=== PATIENT | female | born 1980 | race African-American/Black ===

== ENCOUNTER 2025-07-03 10:31 | Emergency (ER) | payer SELFPAY ==
[~2025-07-03] VITALS: Ht 172.7 cm; Wt 77.6 kg
--- NOTE | 2025-07-03 10:40 | NUR ---
PATIENT IN ROOM
--- NOTE | 2025-07-03 11:08 | ERN ---
ED Note History of Present Illness Stated Complaint: MEDICAL CLERANCE Chief Complaint: Medical Clearance Time Seen by MD: 11:05 Time Seen by Midlevel: 11:07 Dictation: PATIENT IS A 44-YEAR-OLD FEMALE COMING IN VIA EMS FROM [facility]. PER EMS, PATIENT HAD ALREADY BEEN SEEN AT [facility] THIS MORNING AND WAS SEDATED AND THEN DISCHARGED WITH MEDICAL CLEARANCE TO [facility]. [facility] EVALUATED HER ON ARRIVAL TO THEIR FACILITY SAID SHE WAS TOO DROWSY AND TO COME TO OUR FACILITY FOR FURTHER EVALUATION. PATIENT IS A SECTION [employer] BY THE [employer] FOR COOL PTSD. PATIENT DENIES SUICIDAL OR HOMICIDAL IDEATION SHE IS DROWSY BUT AROUSABLE AND ANSWERS QUESTIONS PER EMS, Allergies: Coded Allergies: No Known Drug Allergies (Unverified Allergy, Unknown, 07/03/25) Past Medical History Past Medical History: Anxiety, Depression, Other Additional Past Medical Hx: PTSD Surgical History: RN Note Reviewed/Agreed w/PFSH: Yes Review of System Dictation CONSTITUTIONAL: NEGATIVE EXCEPT FOR HPI HEAD/FACE: NEGATIVE EXCEPT FOR HPI EENT: NEGATIVE EXCEPT FOR HPI RESPIRATORY: NEGATIVE EXCEPT FOR HPI GASTROINTESTINAL/ABDOMINAL: NEGATIVE EXCEPT FOR HPI GENITOURINARY: NEGATIVE EXCEPT FOR HPI MUSCULOSKELETAL: NEGATIVE EXCEPT FOR HPI INTEGUMENTARY: NEGATIVE EXCEPT FOR HPI NEUROLOGICAL/PSYCH: NEGATIVE EXCEPT FOR HPI DROWSY/LETHARGIC HEMATOLOGIC/LYMPHATIC: NEGATIVE EXCEPT FOR HPI ALL SYSTEMS NEGATIVE, EXCEPT NOTED ABOVE. 13 POINT REVIEW OF SYSTEMS ASSESSED AND ALL NEGATIVE EXCEPT FOR ABOVE. Initial Vital Sign VS Vital Signs Date Time Temp Pulse Resp B/P (MAP) Pulse Ox O2 Delivery O2 Flow Rate FiO2 07/03/25 10:36 98.4 94 13 101/75 99 Room Air 0 07/03/25 10:40 21 Physical Exam Dictation VITAL SIGNS REVIEWED GENERAL APPEARANCE: ALERT, ORIENTED X 3, NO ACUTE DISTRESS, WELL DEVELOPED, NOURISHED. PATIENT IS DROWSY YET AROUSABLE AND WE WILL ANSWER QUESTIONS APPRO PRIATELY. SHE OFFERS NO SPECIFIC COMPLAINTS. HEAD AND FACE: NON-TRAUMATIC. EYES: PERRL, PINK CONJUNCTIVAS, EYELID NO TRAUMA, ANTERIOR CHAMBER WITH ARCUS SENILIS. EARS: PINNAS INTACT AND NO SIGNS OF TRAUMA OR ERYTHEMA EAR CANALS CLEAR AND NO DISCHARGE TM NO ERYTHEMA NOSE: NO DISCHARGE, NO BLEEDING. OROPHARYNX: MOUTH NORMAL, TONGUE PINK, PHARYNX CLEAR,NO ERYTHEMA, TONSILS NO EXUDATES, NO ABSCESSES NOTED, MUCOUS MEMBRANE MOIST NECK: SUPPLE, NON-TENDER, NO THYROMEGALY, NO MASSES, NO JVD, NO BRUITS BREAST:DEFERRED CHEST:NO TENDERNESS, NO CREPITUS, NO PARADOXICAL MOVEMENT, NO RETRACTIONS LUNGS:CLEAR, WELL-VENTILATED, SYMMETRIC, NO RALES, NO WHEEZING, NO RHONCHI, NO STRIDOR, GOOD BREATH SOUNDS BILATERALLY HEART: REGULAR RATE, REGULAR RHYTHM, NO MURMUR, NO GALLOPS VASCULAR: NO PERIPHERAL EDEMA, ABDOMEN: SOFT, POSITIVE BOWEL SOUNDS, NONDISTENDED, NO GUARDING, NONTENDER, NO REBOUND, NO MASSES NO HEPATOMEGALY, NO SPLENOMEGALY, NO ULLOA'S SIGN, NO HERNIAS. RECTAL: DEFERRED GENITAL: DEFERRED NEUROLOGICAL: NORMAL SPEECH ONCE AROUSE., MOTOR FUNCTION INTACT, SENSORY FUNCTION INTACT NO SUICIDAL IDEATION. MUSCULOSKELETAL: NECK NONTENDER, FULL RANGE OF MOTION, BACK NONTENDER, FULL RANGE OF MOTION, EXTREMITIES: NONTENDER, FULL RANGE OF MOTION SKIN: COLOR PINK, DRY, NO TURGOR, NO RASH, NO LACERATIONS, NO ABRASIONS, NO CONTUSIONS. LYMPHATIC: DEFERRED Results (Laboratory/Radiology) Laboratory/Radiology Laboratory Tests Test 07/03/25 11:17 07/03/25 11:39 White Blood Count 4.6 K/uL (4.8-10.8) L Red Blood Count 4.01 MIL/uL (4.00-5.50) Hemoglobin 10.0 g/dL (12.0-16.0) L Hematocrit 32.7 % (36-48) L Mean Corpuscular Volume 81.5 fL (79-99) Mean Corpuscular Hemoglobin 24.9 pg (27.0-33.0) L Mean Corpuscular Hemoglobin Concent 30.6 g/dL (32.0-36.0) L Red Cell Distribution Width 18.8 % (11.0-15.5) H Platelet Count 185 K/uL (130-400) Mean Platelet Volume 9.7 fL (7.5-10.5) Immature Granulocyte % (Auto) 0.2 % (0-1) Neutrophils (%) (Auto) 32.1 % (40.0-77.0) L Lymphocytes (%) (Auto) 48.5 % (21.0-51.0) Monocytes (%) (Auto) 17.5 % (3.0-13.0) H Eosinophils (%) (Auto) 1.3 % (0.0-8.0) Basophils (%) (Auto) 0.4 % (0.0-5.0) Neutrophils # (Auto) 1.5 K/uL (1.8-7.7) L Lymphocytes # (Auto) 2.3 K/uL (1.0-4.8) Monocytes # (Auto) 0.8 K/uL (0.1-1.0) Eosinophils # (Auto) 0.06 K/uL (0.00-0.70) Basophils # (Auto) 0.02 K/uL (0.00-0.20) Absolute Immature Granulocyte (auto 0.01 K/uL (0-1) Segmented Neutrophils % 36 % (40-70) L Lymphocytes % (Manual) 52 % (22-44) H Monocytes % (Manual) 9 % (2-9) Eosinophils % (Manual) 3 % (1-6) Nucleated Red Blood Cells 0.0 % (0.0-0.19) Differential Comment MANUAL DIFFERENTIAL White Cell Morphology Comment Platelet Morphology Comment ADEQUATE Red Blood Cell Morphology See comments Sodium Level 138 mmol/L (136-145) Potassium Level 3.9 mmol/L (3.5-5.1) Chloride Level 107 mmol/L (101-111) Carbon Dioxide Level 26 mmol/L (21-32) Blood Urea Nitrogen 14 mg/dL (7-18) Creatinine 0.8 mg/dL (0.5-1.0) Glomerular Filtration Rate Calc 92 mL/min (>90) Random Glucose 71 mg/dL (70-105) Total Calcium 8.4 mg/dL (8.5-10.1) L Total Creatine Kinase 185 U/L (21-232) Serum Test, Qualitative NEGATIVE (NEGATIVE) Salicylates Level < 2.8 mg/dL (2.8-20.0) L Acetaminophen Level < 1 mcg/mL (10-30) L Serum Alcohol < 3 mg/dL (0-10) Urine Color RED (YELLOW) Urine Appearance CLOUDY (CLEAR) H Urine pH 6.5 (5.0-8.0) Urine Specific [place] 1.025 (1.001-1.031) Urine Protein 100 mg/dL (NEGATIVE) H Urine Glucose (UA) NEGATIVE mg/dL (NEGATIVE) Urine Ketones NEGATIVE mg/dL (NEGATIVE) Urine Occult Blood LARGE (NEGATIVE) H Urine Nitrate NEGATIVE (NEGATIVE) Urine Bilirubin SMALL mg/dL (NEGATIVE) H Urine Urobilinogen 0.2 mg/dL (0.2-1.0) Urine Leukocyte Esterase TRACE Surendra/uL (NEGATIVE) H Urine RBC TNTC /HPF (0-1) H Urine WBC 0-1 /HPF (0-1) Urine Squamous Epithelial Cells Few /HPF (0-2) Urine Bacteria Rare /HPF (None Seen) Urine Opiates Screen NEGATIVE (NEGATIVE) Urine Barbiturates Screen NEGATIVE (NEGATIVE) Urine Phencyclidine Screen NEGATIVE (NEGATIVE) Urine Amphetamines Screen NEGATIVE (NEGATIVE) Urine Benzodiazepines Screen POSITIVE (NEGATIVE) H Urine Cocaine Screen NEGATIVE (NEGATIVE) Urine Marijuana (THC) Screen NEGATIVE (NEGATIVE) Labs Reviewed?: Yes ED Course ED Course Orders Procedure Category Date Status Time Drug Screen Urine LAB 07/03/25 Complete 11:05 Cbc With Differential LAB 07/03/25 Complete 11:05 Alcohol, Blood LAB 07/03/25 Complete 11:05 Salicylate LAB 07/03/25 Complete 11:05 Acetaminophen LAB 07/03/25 Complete 11:05 Testing, LAB 07/03/25 Complete Serum Hcg 11:05 Urinalysis Profile LAB 07/03/25 Complete 11:05 Creatine Kinase, Total LAB 07/03/25 Complete 11:05 Basic Metabolic Panel LAB 07/03/25 Complete 11:05 Manual Differential LAB 07/03/25 Complete 11:17 Vital Signs Date Time Temp Pulse Resp B/P (MAP) Pulse Ox O2 Delivery O2 Flow Rate FiO2 07/03/25 11:59 98.2 102 16 119/84 99 Room Air* 0 21 07/03/25 10:40 98.2 89 20 112/79 100 Room Air* 0 21 07/03/25 10:36 98.4 94 13 101/75 99 Room Air 0 1150/PATIENT REQUESTED FOOD AND WATER FROM RN. SHE IS NOW MORE AROUSABLE AND IS ABLE TO EAT AND DRINK SAFELY. SHE WILL BE PROVIDED LUNCH AND BE MEDICALLY CLEARED BACK TO [facility]1300/ 1300/* PATIENT ALERT AND ORIENTED X3 SPEECH IS CLEAR SHE IS NOW MEDICALLY CLEAR ED FOR [facility] AND WE WILL BE TRANSFERRED. Medical Decision Making MDM MDM: DIFFERENTIAL DIAGNOSIS: OVERDOSE/ALCOHOLIC INTOXICATION/POLYDRUG ABUSE/ELECTROLYTE IMBALANCE/DEHYDRATION RATIONALE: TESTS CONSIDERED AND ORDERED SECONDARY TO SHARED DECISION MAKING INCLUDE: LABS, PREVIOUS OUTSIDE RECORDS REVIEWED: OLD ER VISITS. RISK OF COMPLICATION AND/OR MORBIDITY OR MORTALITY OF PATIENT MANAGEMENT: NONE MEDICATIONS-PER MEDICATION RECONCILIATION NEED FOR HOSPITALIZATION: PATIENT DOES MEET CRITERIA FOR HOSPITALIZATION. PATIENT MEDICALLY CLEARED FOR PALMS AND PSYCHIATRIC EVALUATION IN INPATIENT T REATMENT NEED FOR EMERGENCY MAJOR/MINOR SURGERY: NO THERE ARE NO SOCIAL CONCERNS WITH THIS PATIENT. PRESCRIPTION DRUG MANAGEMENT PRESCRIPTIONS WILL INCLUDE SYMPTOMATIC CARE PATIENT'S PRIOR EXTERNAL MEDICAL RECORDS FROM OTHER ER VISITS WERE REVIEWED BY Melo Gross INDICATED. PRIOR TESTING AND RESULTS FROM PREVIOUS VISITS WERE REVIEWED. PRIOR TESTS WERE TAKEN INTO ACCOUNT WITH MEDICAL DECISION MAKING AND RESOURCE UTILIZATION, INDEPENDENT HISTORIAN/HISTORIANS WERE USED TO OBTAIN COMPLETE MEDICAL HISTORY. I INDEPENDENTLY INTERPRETED THE TEST THAT WERE PERFORMED, RESULTS WERE REVIEWED BY ME AND CONSIDERED FINDINGS ON RADIOLOGY IF ORDERED. MEDICAL MANAGEMENT AND EXAMINATION INTERPRETATION DISCUSSIONS WERE HAD BY ME WITH OTHER QUALIFIED HEALTHCARE PROFESSIONALS INDICATED FOR THE PATIENT'S CARE. DX & DISP Disposition: Discharge Departure Impression: Primary Impression: Altered mental status associated with intoxication Additional Impressions: Hypocalcemia, Hematuria, PTSD (post-traumatic stress disorder) Condition: Stable Additional Instructions: FOLLOW-UP WITH PRIMARY CARE PROVIDER IN 1 TO 2 DAYS. TAKE MEDICATIONS DIRECTED HERE IN THE EMERGENCY ROOM. OKAY TO CONTINUE HOME MEDICATIONS UNLESS OTHERWISE DISCUSSED DURING YOUR VISIT IN THE EMERGENCY ROOM TODAY. RETURN TO YOUR NEAREST EMERGENCY ROOM IF SYMPTOMS WORSEN OR IF THERE IS NO IMPROVEMENT. CALL 911 IF YOU NEED IMMEDIATE ASSISTANCE. TAKE TYLENOL OR MOTRIN [id number] NEEDED AND IF NO CONTRAINDICATIONS ARE PRESENT. INCREASE ORAL HYDRATION. A WOUND CULTURE OR URINE CULTURE WAS ORDERED HERE IN THE EMERGENCY ROOM DEPARTMENT PLEASE FOLLOW-UP WITH PRIMARY CARE PROVIDER AND ADVISE THEM TO GET REPEAT PORTS FROM OUR FACILITY. IF YOU HAD ANY [place] WRAP/SPLINTS THAT WERE APPLIED HERE, PLEASE DO NOT REMOVE THEM UNTIL YOU SEE YOUR PRIMARY CARE OR SPECIALTY. PATIENT IS MEDICALLY CLEARED FOR PSYCHIATRIC EVALUATION AND HOSPITALIZATION Time of Disposition: 13:03 I have reviewed the case, and I agree with, Diagnosis and Plan MARQUISE WESTBROOK Jul 03, 2025 11:08
[2025-07-03 11:23] LABS: IMMATURE GRANULOCYTE ABSOLUTE 0.01 K/uL (0-1); NUCLEATED RED BLOOD CELLS 0.0 % (0.0-0.19); PLATELET COUNT (AUTO) 185 K/uL (130-400); RED BLOOD CELL COUNT(AUTO) 4.01 MIL/uL (4.00-5.50); RED CELL DISTRIBUTION WIDTH 18.8 % (11.0-15.5); WHITE BLOOD COUNT (AUTO) 4.6 K/uL (4.8-10.8)
[2025-07-03 11:33] LABS: CREATININE 0.8 mg/dL (0.5-1.0); GLOMERULAR FILTR. RATE CALC 92 mL/min (>90); GLUCOSE,RANDOM 71 mg/dL (70-105); SODIUM SERUM 138 mmol/L (136-145); UREA NITROGEN, BLOOD 14 mg/dL (7-18)
[2025-07-03 11:39] LABS: ALCOHOL, BLOOD < 3 mg/dL (0-10); CREATINE KINASE, TOTAL 185 U/L (21-232)
[2025-07-03 11:55] LABS: APPEARANCE,URINE CLOUDY (CLEAR); GLUCOSE, URINE (UA) NEGATIVE (NEGATIVE); LEUKOCYTE ESTERASE ,URINE TRACE Leu/uL (NEGATIVE); NITRATE,URINE NEGATIVE (NEGATIVE); OCCULT BLOOD,URINE LARGE (NEGATIVE)
[2025-07-03 12:00] LABS: ADD UA MICROSCOPIC YES
[2025-07-03 12:04] LABS: AMPHET/METH SCREEN,URINE NEGATIVE (NEGATIVE); BARBITURATE SCREEN, URINE NEGATIVE (NEGATIVE); CANNABINOID SCREEN,URINE NEGATIVE (NEGATIVE); COCAINE SCREEN,URINE NEGATIVE (NEGATIVE)
[2025-07-03 12:13] LABS: EOSINOPHILS % (MANUAL) 3 % (1-6); LYMPHOCYTES % (MANUAL) 52 % (22-44); MAN.DIFF COMMENT-IMPRESSION MANUAL DIFFERENTIAL; MONOCYTES % (MANUAL) 9 % (2-9); SEGMENTED NEUTROPHILS % 36 % (40-70)
[2025-07-03 12:14] LABS: PLATELET MORPHOLOGY COMMENT ADEQUATE
[2025-07-03 12:25] LABS: SQUAMOUS EPITHELIAL CELL,UR Few /HPF (0-2)
[2025-07-03 13:05] VITALS: BP 119/84; PULSE 67; RESP 12; TEMP 98.2; O2SAT 99
== END 2025-07-03 13:09 ==
LOC: EDH 10:31
DX: R41.82 Altered mental status, unspecified (principal); T50.905A Adverse effect of unspecified drugs, medicaments and biological substances, initial encounter; F43.10 Post-traumatic stress disorder, unspecified; E83.51 Hypocalcemia; R31.9 Hematuria, unspecified; Y92.89 Other specified places as the place of occurrence of the external cause
CPT/HCPCS: 99283; 82550; 80048; 80305; 84703; 85025; 36415; 81001; G0481